=== PATIENT | male | born 1990 | race Caucasian/White ===

== ENCOUNTER 2023-01-28 18:51 | Emergency (ER) | payer BC, OTHER ==
[2023-01-28] MEDS ORDERED: Diphtheria,Pertussis(Acell),Tetanus Vaccine 0.5 ML Syringe IM ONE (19:02)
== END 2023-01-28 20:30 | disposition home or self-care (01) ==
LOC: LL.ED 18:51
DX: S51.812A Laceration without foreign body of left forearm, initial encounter (principal); I10 Essential (primary) hypertension; Z23 Encounter for immunization; Z86.711 Personal history of pulmonary embolism; Z79.899 Other long term (current) drug therapy; Z79.01 Long term (current) use of anticoagulants; W26.8XXA Contact with other sharp object(s), not elsewhere classified, initial encounter
CPT/HCPCS: 12002; 90471; 90715; 99282-25; 99283

== ENCOUNTER 2023-10-01 11:28 | Day surgery (SDC) | payer BC ==
[~2023-10-01 11:28] MED LIST: Midazolam 1 MG/ML 2 ML SDV ONE; Propofol 200 MG/20 ML SDV ONE
[2023-10-01] MEDS ORDERED: Sodium Chloride 0.9% 10 ML Syringe FLUSH PRN (11:30)
[2023-10-01] MEDS: Lactated Ringers 1,000 ML IV SCH (12:13)
[2023-10-01] MEDS ORDERED: Lidocaine 2% 5 ML SDV ONE (12:46)
[2023-10-01] MEDS ORDERED: Midazolam 1 MG/ML 2 ML SDV ONE (13:15)
== END 2023-10-01 13:50 | disposition home or self-care (01) ==
LOC: LL.SDS 11:28
PROVIDERS: ATTEND Surgery
DX: K20.0 Eosinophilic esophagitis (principal); K22.2 Esophageal obstruction; R13.10 Dysphagia, unspecified; E66.01 Morbid (severe) obesity due to excess calories; N50.812 Left testicular pain; N50.811 Right testicular pain; I10 Essential (primary) hypertension; E78.5 Hyperlipidemia, unspecified; Z68.42 Body mass index [BMI] 45.0-49.9, adult; Z79.899 Other long term (current) drug therapy
CPT/HCPCS: 00731; J2250; J2704; J3490; J7120